=== PATIENT | male | born 1930 | race Caucasian/White ===

== ENCOUNTER 2017-06-28 19:40 | Emergency (ER) | payer MEDICARE, OTHER ==
[~2017-06-28] VITALS: Ht 180.3 cm; Wt 63.5 kg
[~2017-06-28 19:40] MED LIST: ATOR20TA PO; HYDR-3326 PO; MAGN400O6 PO; MULT1TAB73 PO; TAMS-3 PO
--- NOTE | 2017-06-28 19:47 | NUR ---
Pt biba from home for mech fall resulting in lac to right eyebrow, abrasion to right shoulder, abrasion to right elbow and abrasion to knuckles of right hand. Pt alert and oriented x 4. Pt denies LOC, denies dizziness. Pt resting in position of comfort for self. Awaiting further eval.
[2017-06-28] MEDS ORDERED: CEPHALEXIN MONOHYDRATE 500 MG CAPSULE PO ONE (20:15)
[2017-06-28] MEDS ORDERED: LIDOCAINE 2%-EPI 1:100,000 20 ML VIAL TP ONE (20:15)
[2017-06-28] MEDS ORDERED: NEOMY/BACITRA/POLYMYXIN B OINT UD PACKET TP ONE ×3 (20:15→22:43)
[2017-06-28] MEDS ORDERED: LIDOCAINE 2%-EPI 1:100,000 20 ML VIAL ONE (22:00)
[2017-06-28] MEDS ORDERED: TDAP DIPH,PERTUSS,TET VAC/PF 0.5 ML DISP.SYRIN IM ONE ×3 (22:00→22:53)
[2017-06-28] MEDS ORDERED: CEPHALEXIN MONOHYDRATE 500 MG CAPSULE ONE ×2 (22:00→22:53)
--- NOTE | 2017-06-28 22:23 | NUR ---
Pt to and from radiology. Dr. Cobian at bedside for laceration repair.
--- NOTE | 2017-06-28 22:37 | NUR ---
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 Eta 15- 20 mins
--- NOTE | 2017-06-28 23:02 | NUR ---
Pt stable for discharge per Dr. Cobian. Abrasions to elbow and knuckles of right hand cleansed and simple drsg applied.
--- NOTE | 2017-06-28 23:07 | NUR ---
Patient discharged to home in stable conditon WITH EX TAKING PATIENT HOME. Written and verbal after care instructions given. Patient/EX verbalizes understanding of instructions.
[2017-06-28 23:08] VITALS: BP 128/75
== END 2017-06-28 23:09 | disposition home or self-care (01) ==
LOC: ER 19:41
DX: S51.011A Laceration without foreign body of right elbow, initial encounter (principal); S01.81XA Laceration without foreign body of other part of head, initial encounter; W01.0XXA Fall on same level from slipping, tripping and stumbling without subsequent striking against object, initial encounter; Y93.89 Activity, other specified; Y92.9 Unspecified place or not applicable; Y99.9 Unspecified external cause status
CPT/HCPCS: 70450; 70486; 72125; 73060; 73090; 90715; A4217; A4663; J3490

== ENCOUNTER 2017-08-05 21:02 | Inpatient (IN) | payer MEDICARE, OTHER ==
[~2017-08-05] VITALS: Ht 180.3 cm; Wt 49.9 kg
--- NOTE | 2017-08-05 21:15 | NUR ---
Pt biba from home. Pt's ex- called 911 concerned for pt. Pt refusing his medications, not acting himself. Per EMS pt's blood pressure was in the 80's on scene. Pt alert and oriented to name and , unable to recall the year or his location. Pt is very cachectic. Pt c/o right wrist pain s/p fall two days ago. No obvious deformity noted, however the wrist is warm to touch. Pt resting in position of comfort for self. Resp even and unlabored. Pt arrived with IV inserted and fluid bolus infusing. Pt awaiting further eval.
[2017-08-05] MEDS ORDERED: IV NORMAL SALINE 500 ML IV ONE (21:42)
--- NOTE | 2017-08-05 22:00 | NUR ---
PT STATES UNABLE TO REMEMBER MEDS.ACCORDING TO PARAMEDICS EX- STATED PT DOES NOT TAKE ANY MEDS.PT LIVES ALONE
[2017-08-05 22:24] LABS: BASOPHILS # (AUTO) 0.3 K/uL (0.0-8.0); BASOPHILS % (AUTO) 2.6 % (0.0-2.0); EOSINOPHILS % (AUTO) 0.1 % (0.0-7.0); HEMATOCRIT 41.8 % (40-50); HEMOGLOBIN 13.4 G/DL (14.0-18.0); LYMPHOCYTES # (AUTO) 0.5 K/UL (0.8-4.8); MEAN CORPUSCULAR HEMOGLOBIN 29.7 UUG (27.0-31.0); MEAN CORPUSCULAR HGB CONC 32 g/dL (32.0-37.0); MEAN CORPUSCULAR VOLUME 92.3 FL (82.0-92.0); MONOCYTES # (AUTO) 1.4 K/UL (0.1-1.30); MONOCYTES % (AUTO) 10.3 % (0.0-11.0); NEUTROPHILS # (AUTO) 11.1 K/UL (1.8-8.9); PLATELET COUNT (AUTO) 277 K/UL (150-450); RED BLOOD CELL COUNT(AUTO) 4.52 MIL/UL (4.7-6.1); WHITE BLOOD COUNT (AUTO) 13.3 K/UL (4.0-11.2)
[2017-08-05] MEDS ORDERED: HYDROMORPHONE 1 MG/1 ML DISP.SYRIN IV ONE (22:30)
--- NOTE | 2017-08-05 22:30 | NUR ---
Fluid bolus completed. Pt medicated for pain, will monitor for effects of medication. Wrist repositioned for comfort.
[2017-08-05 22:37] LABS: ALANINE AMINOTRANSFERASE 12 U/L (16-63); ALKALINE PHOSPHATASE 55 U/L (50-136); ASPARTATE AMINOTRANSFERASE 14 U/L (15-37); BILIRUBIN,DIRECT 0.3 mg/dL (0.0-0.2); BILIRUBIN,TOTAL 1.1 mg/dL (0.2-1.0); CARBON DIOXIDE 26 mmol/L (21-32); CHLORIDE 104 mmol/L (98-107); GLUCOSE 118 mg/dL (74-106); POTASSIUM 4.1 mmol/L (3.5-5.1); TOTAL PROTEIN, SERUM 6.5 g/dL (6.4-8.2); UREA NITROGEN, BLOOD 28 mg/dL (7-18)
[2017-08-05] MEDS ORDERED: HYDROMORPHONE 2 MG/1 ML DISP.SYRIN ONE (22:38)
[2017-08-05 22:56] LABS: LIPASE 121 U/L (73-393)
[2017-08-05] MEDS ORDERED: CEFAZOLIN 1 G in IV DEXTROSE 5% 50 ML IV ONE (23:00)
--- NOTE | 2017-08-05 23:15 | NUR ---
Pt to CT via josr
--- NOTE | 2017-08-05 23:30 | NUR ---
Pt returned from CT via gurney. Resting in position of comfort for self. Pt no complaints at this time. Sts his wrist feels much better.
--- NOTE | 2017-08-05 23:45 | NUR ---
ABT infusion started, will monitor for any adverse reactions.
[2017-08-05] MEDS ORDERED: CEFAZOLIN 1 G VIAL ONE (23:53)
--- NOTE | 2017-08-06 00:21 | NUR ---
ABT infusion completed, no adverse reactions noted. Report called to SEAN Sánchez. Preparing to transfer pt to the floor.
[2017-08-06 00:45] VITALS: BP 137/71
[2017-08-06] MEDS ORDERED: HYDROCODONE/APAP 5-325MG TABLET PO PRN ×2 (00:45)
[2017-08-06] MEDS ORDERED: ACETAMINOPHEN 325 MG TABLET PO PRN (00:45)
[2017-08-06] MEDS ORDERED: Z GUARD REMEDY PASTE 57 GM TUBE TOP PRN (00:45)
[2017-08-06] MEDS ORDERED: ONDANSETRON 4 MG/2 ML VIAL IV PRN (00:45)
[2017-08-06] MEDS ORDERED: MAGNESIUM HYDROXIDE 30 ML LIQUID UDC PO PRN ×2 (00:45)
[2017-08-06] MEDS ORDERED: ZOLPIDEM 5 MG TABLET PO PRN (00:45)
--- NOTE | 2017-08-06 00:45 | NUR ---
Admitted a 87y/o male pt via [facility] with a diagnosis of delirium. Pt is alert and awake with episodes of confusion. No acute distress noted. Breathing even and unlabored with normal respirations. Skin assessment done, pictures taken and was placed on chart. However, Pt unable to provide medical history due to current condition. IV on Left AC intact and patent. Med recon done. DVT pumps on. Vital signs stable. Kept clean, dry and comfortable. Call light within reach. All needs attended. Will continue to monitor.
[2017-08-06] MEDS ORDERED: ALBUTEROL SULFATE 1.25 MG/3 ML NEBU NEB PRN (01:00)
[2017-08-06] MEDS: IV D5 1/2 NS 1000 ML 1,000 ML IV PRN ×2 (02:20→18:02)
[2017-08-06 04:00] VITALS: BP 103/53
--- NOTE | 2017-08-06 06:52 | NUR ---
pt slept comfortably throughout the shift. No acute distress noted. No complaints of pain. Pt pulled his IV out on his Left AC, started a new line on RFA, intact and patent. kept clean, dry and comfortable. All needs attended. Will continue to monitor.
[2017-08-06 07:02] LABS: AMYLASE 41 U/L (25-115); LIPASE 94 U/L (73-393)
[2017-08-06] MEDS: MULTIVITAMINS,THERAPEUTIC TABLET PO SCH (08:05)
[2017-08-06] MEDS: PANTOPRAZOLE SODIUM 40 MG TABLET.DR PO SCH (08:05)
[2017-08-06] MEDS ORDERED: Medication Not On Formulary EA (Multivitamins (Multivitamin) 1 EACH) PO SCH (09:00)
--- NOTE | 2017-08-06 09:40 | NUR ---
PATIENT NOTED TO HAVE PULLED OUT HIS HEPLOCK AT THIS TIME UNABLE TO RECALL WHAT HAPPENED WILL REINSERT SOON POSSIBLE.
--- NOTE | 2017-08-06 10:30 | NUR ---
HEPLOCK REINSERTED TO HIS RIGHT UPPER ARM WITH GAUGE 20 ANGIO AND IVF RESTARTED IN PROGRESS ORDERED.
[2017-08-06 11:19] VITALS: BP 93/52
[2017-08-06 12:48] LABS: *BLOOD, URINE NEGATIVE (NEGATIVE); *COLOR,URINE DARK YELLOW (YELLOW); *KETONES,URINE 1+ (NEGATIVE); *PROTEIN,URINE TRACE (NEGATIVE); LEUKOCYTE ESTERASE ,URINE TRACE (NEGATIVE); NITRITE, URINE NEGATIVE (NEGATIVE); UGLUCOSE TRACE (NEGATIVE)
[2017-08-06 13:07] LABS: *BILIRUBIN,URIN NEGATIVE (NEGATIVE)
[2017-08-06 13:08] LABS: *CLARITY,URINE SLIGHTLY HAZY (CLEAR)
[2017-08-06 13:09] LABS: BACTERIA,URINE NONE SEEN /HPF (NONE SEEN); RBC,URINE NONE SEEN /HPF (0-3); SQUAMOUS EPITHELIAL CELL,UR FEW /HPF (NONE SEEN); URIC ACID CRYSTALS,URINE MODERATE /HPF (NONE SEEN); WBC,URINE 0-3 /HPF (0-3)
[2017-08-06] MEDS: NEOMY/BACITRAC/POLYMI OINT 28.35 GM TUBE TOP SCH ×2 (13:51→21:44)
[2017-08-06 14:04] LABS: IRON, SERUM 22 ug/dL (50-175)
--- NOTE | 2017-08-06 14:18 | NUR ---
DR NEREYDA GARCÍA AWARE OF THE MULTIPLE SKIN TEARS AND SCABS WITH NEW ORDERS AND NOTED
[2017-08-06 15:57] VITALS: BP 93/63
--- NOTE | 2017-08-06 18:19 | NUR ---
APPETITE IS BETTER FOR DINNER BUT REFUSED THE BOOST STATED THAT HE IS TOO FULL AT THE MOMENT WILL SAVE IT FOR HIM TO DRINK LATER TONITE.
--- NOTE | 2017-08-06 19:30 | NUR ---
RECEIVED PATIENT FROM PREVIOUS SHIFT. PATIENT IS STABLE, NO SIGNS OF DISTRESS. PATIENT IS CONFUSED, APPEARS TO BE SLIGHTLY ANXIOUS. REORIENTATION PROVIDED TO PATIENT BUT CONTINUES TO BE CONFUSED. IV ACCESS NOTED, PATENT, AND INTACT. CALL LIGHT IN REACH OF PATIENT. SAFETY AND COMFORT PROVIDED.
[2017-08-06 20:01] VITALS: BP 104/66
[2017-08-06] MEDS: TAMSULOSIN HCL 0.4 MG CAP.SR.24H PO SCH (20:24)
[2017-08-06] MEDS: ATORVASTATIN 20 MG TABLET PO SCH (20:24)
[2017-08-06] MEDS: Z GUARD REMEDY PASTE 57 GM TUBE TOP SCH (21:38)
[2017-08-07 05:56] VITALS: BP 105/63
[2017-08-07 06:50] LABS: BASOPHILS % (AUTO) 0.5 % (0.0-2.0); EOSINOPHILS # (AUTO) 0.1 K/uL (0.0-0.7); EOSINOPHILS % (AUTO) 2.2 % (0.0-7.0); HEMATOCRIT 36.7 % (40-50); HEMOGLOBIN 12.3 G/DL (14.0-18.0); LYMPHOCYTES # (AUTO) 1.2 K/UL (0.8-4.8); LYMPHOCYTES % (AUTO) 18.2 % (20.5-51.5); MEAN CORPUSCULAR HEMOGLOBIN 30.7 UUG (27.0-31.0); MEAN CORPUSCULAR HGB CONC 34 g/dL (32.0-37.0); MEAN CORPUSCULAR VOLUME 91.6 FL (82.0-92.0); MONOCYTES # (AUTO) 1.1 K/UL (0.1-1.30); MONOCYTES % (AUTO) 16.3 % (0.0-11.0); NEUTROPHILS % (AUTO) 62.8 % (38.5-71.5); PLATELET COUNT (AUTO) 226 K/UL (150-450); RED BLOOD CELL COUNT(AUTO) 4.01 MIL/UL (4.7-6.1); WHITE BLOOD COUNT (AUTO) 6.4 K/UL (4.0-11.2)
[2017-08-07] MEDS: PANTOPRAZOLE SODIUM 40 MG TABLET.DR PO SCH (07:04)
[2017-08-07 07:18] LABS: ALANINE AMINOTRANSFERASE 13 U/L (16-63); ALKALINE PHOSPHATASE 43 U/L (50-136); ASPARTATE AMINOTRANSFERASE 14 U/L (15-37); BILIRUBIN,TOTAL 0.7 mg/dL (0.2-1.0); CARBON DIOXIDE 28 mmol/L (21-32); CHLORIDE 109 mmol/L (98-107); CHOLESTEROL 156 mg/dL (<200); CREATININE 0.9 mg/dL (0.6-1.3); GLUCOSE 102 mg/dL (74-106); HDL CHOLESTEROL 57 mg/dL (40-60); MAGNESIUM 2.1 mg/dL (1.8-2.4); PHOSPHOROUS 2.9 mg/dL (2.5-4.9); POTASSIUM 3.5 mmol/L (3.5-5.1); TOTAL PROTEIN, SERUM 5.9 g/dL (6.4-8.2); TRIGLYCERIDES 61 MG/DL (30-150); UREA NITROGEN, BLOOD 14 mg/dL (7-18)
[2017-08-07] MEDS: IV D5 1/2 NS 1000 ML 1,000 ML IV PRN ×2 (07:41→20:21)
[2017-08-07 07:59] LABS: IRON, SERUM 37 ug/dL (50-175)
[2017-08-07] MEDS: Z GUARD REMEDY PASTE 57 GM TUBE TOP SCH ×2 (08:09→20:20)
[2017-08-07] MEDS: NEOMY/BACITRAC/POLYMI OINT 28.35 GM TUBE TOP SCH ×2 (08:09→20:20)
[2017-08-07] MEDS: MULTIVITAMINS,THERAPEUTIC TABLET PO SCH (08:09)
[2017-08-07 08:27] LABS: THYROID STIMULATING HORMONE 3.075 mIU/mL (0.358-3.740)
--- NOTE | 2017-08-07 09:34 | NUR ---
AWAKE ALERT AND VERBALLY RESPONDS WITH CONFUSSION ALL NEEDS ANTICIPATED AND SATISFIED.REMAIN ON IVF ORDERED MADE COMFORTABLE AND WILL OBSERVE.
--- NOTE | 2017-08-07 11:00 | NUR ---
PATIENT SEEN BY THE PHYSICAL THERAPY AND HE WALKED WITH THE FRONT WHEEL WALKER WITH [employer] AND BACK TO BED.
[2017-08-07 11:58] VITALS: BP 96/66
--- NOTE | 2017-08-07 13:46 | NUR ---
SLT HERE AND SEEN PATIENT AND STATED THAT SHE WILL CHANGE PATIENTS DIET.
[2017-08-07 15:47] VITALS: BP 99/63
--- NOTE | 2017-08-07 18:00 | NUR ---
PATIENT IS RESTING AWAKE ALERT TO SELF REMAIN ON IVF ORDERED ALL NEEDS ANTICIPATED AND SATISFIED NOT IN DISTRESS AT THIS TIME.
[2017-08-07 20:00] VITALS: BP 112/67
[2017-08-07] MEDS: ATORVASTATIN 20 MG TABLET PO SCH (20:14)
[2017-08-07] MEDS: TAMSULOSIN HCL 0.4 MG CAP.SR.24H PO SCH (20:14)
[2017-08-07] MEDS: VITAMIN E CREAM 56.7 GM JAR TP SCH (20:20)
--- NOTE | 2017-08-07 23:13 | NUR ---
RECEIVED PATIENT AWAKE AND COMFORTABLE IN BED. ALERT AND ORIENTED TO SELF, PLACE AND TIME. ON IVF INFUSION ORDERED. NOTED SKIN TEAR IN DIFFERENT AREAS LEFT AND RIGHT ELBOWS DRESSING INTACT. SUTURE IN RIGHT INDEX FINGER CLEAN AND DRY. VITAL SIGNS ARE STABLE. INCONTINENT OF URINE. REDNESS ON PERINEAL AREA BARRIER CREAM APPLIED. OTHERWISE PATIENT IS SLEEPING AT THIS TIME. CALL BUCKNER WITHIN REACH.
[2017-08-08] MEDS: PANTOPRAZOLE SODIUM 40 MG TABLET.DR PO SCH (06:04)
--- NOTE | 2017-08-08 06:04 | NUR ---
PATIENT SLEPT GOOD THROUGH THE NIGHT. NO COMPLAINT OF PAIN, NO RESPIRATORY DISTRESS. VITAL SIGNS ARE STABLE. KEPT SAFE AND MONITORED. CALL LIGHT WITHIN REACH.
[2017-08-08 06:40] VITALS: BP 110/63
[2017-08-08] MEDS: MULTIVITAMINS,THERAPEUTIC TABLET PO SCH (08:08)
[2017-08-08] MEDS: VITAMIN E CREAM 56.7 GM JAR TP SCH ×2 (08:09→20:31)
[2017-08-08] MEDS: NEOMY/BACITRAC/POLYMI OINT 28.35 GM TUBE TOP SCH ×2 (08:09→20:32)
[2017-08-08] MEDS: Z GUARD REMEDY PASTE 57 GM TUBE TOP SCH ×2 (08:09→20:31)
--- NOTE | 2017-08-08 08:30 | NUR ---
AWAKE ALERT TO SELF ASSISTED WITH BFAST WITH FAIR [employer]ITE LIKES HIS BOOST REMAIN ON IVF ORDERED WITH NO INFILTERATION ON SITE.ON FIRST STEP ANGEL TURNED AND REPOSITIONED FOR COMFORT.MADE COMFORTABLE NOT IN DISTRESS AT THIS TIME.
[2017-08-08] MEDS: IV D5 1/2 NS 1000 ML 1,000 ML IV PRN ×2 (09:02→23:38)
[2017-08-08] MEDS: LEVOFLOXACIN 500 MG/D5W 500 MG in PREMIXED 1 EACH IV SCH (10:55)
[2017-08-08 11:25] VITALS: BP 99/50
--- NOTE | 2017-08-08 13:43 | NUR ---
REMAIN ON IV ANTIBIOTICS ORDERED WITH NO ADVERSE OR ALLERGIC REACTIONS AT THIS TIME.NO EPISODES OF COUGH OR SHORTNESS OF BREATH ALL NEEDS ANTICIPATED AND SATISFIED.
[2017-08-08 15:43] VITALS: BP_SYST 88; BP_SYST 90; BP_DIAS 48; BP_DIAS 53
[2017-08-08 16:40] LABS: *OCCULT BLOOD STOOL NEGATIVE (NEGATIVE)
--- NOTE | 2017-08-08 18:00 | NUR ---
RESTING STATED THAT HE IS TIRED DENIES DISCOMFORTS MADE COMFORTABLE PATIENT HAD A BOWEL MOVEMENT TODAY.
[2017-08-08 20:00] VITALS: BP 97/52
--- NOTE | 2017-08-08 20:00 | NUR ---
Pt received in bed AOx2 but forgetful at times. IVF running in right forearm, intact and patent. Pt is on air mattress, noted generalized bruises all over body and sutures to right middle finger with dressing. No acute distress noted. Bed in low and locked position. Will continue to monitor for safety.
[2017-08-08] MEDS: TAMSULOSIN HCL 0.4 MG CAP.SR.24H PO SCH (20:31)
[2017-08-08] MEDS: ATORVASTATIN 20 MG TABLET PO SCH (20:31)
--- NOTE | 2017-08-09 03:13 | NUR ---
pt sleeping in bed at this time, easily arousable. Receiving IVF in right arm, tolerating well. No acute distress noted.
[2017-08-09 05:05] VITALS: BP 100/61
--- NOTE | 2017-08-09 06:03 | NUR ---
Pt slept well through out the night. Receiving IVF, tolerating well. pt able to turn self in bed. No acute distress noted.
[2017-08-09] MEDS: PANTOPRAZOLE SODIUM 40 MG TABLET.DR PO SCH (06:16)
[2017-08-09 06:49] LABS: BASOPHILS % (AUTO) 0.6 % (0.0-2.0); EOSINOPHILS # (AUTO) 0.2 K/uL (0.0-0.7); EOSINOPHILS % (AUTO) 2.6 % (0.0-7.0); HEMATOCRIT 35.6 % (40-50); HEMOGLOBIN 11.7 G/DL (14.0-18.0); LYMPHOCYTES # (AUTO) 0.9 K/UL (0.8-4.8); LYMPHOCYTES % (AUTO) 15.1 % (20.5-51.5); MEAN CORPUSCULAR HGB CONC 33 g/dL (32.0-37.0); MEAN CORPUSCULAR VOLUME 91.5 FL (82.0-92.0); MONOCYTES # (AUTO) 0.8 K/UL (0.1-1.30); MONOCYTES % (AUTO) 13.2 % (0.0-11.0); NEUTROPHILS # (AUTO) 4.2 K/UL (1.8-8.9); NEUTROPHILS % (AUTO) 68.5 % (38.5-71.5); PLATELET COUNT (AUTO) 259 K/UL (150-450); RED BLOOD CELL COUNT(AUTO) 3.89 MIL/UL (4.7-6.1); WHITE BLOOD COUNT (AUTO) 6.1 K/UL (4.0-11.2)
[2017-08-09 06:57] LABS: CARBON DIOXIDE 32 mmol/L (21-32); CHLORIDE 107 mmol/L (98-107); CREATININE 0.8 mg/dL (0.6-1.3); GLUCOSE 88 mg/dL (74-106); PHOSPHOROUS 2.2 mg/dL (2.5-4.9); POTASSIUM 4.3 mmol/L (3.5-5.1); UREA NITROGEN, BLOOD 11 mg/dL (7-18)
[2017-08-09] MEDS: NEOMY/BACITRAC/POLYMI OINT 28.35 GM TUBE TOP SCH ×2 (08:02→20:55)
[2017-08-09] MEDS: MULTIVITAMINS,THERAPEUTIC TABLET PO SCH (08:02)
[2017-08-09] MEDS: Z GUARD REMEDY PASTE 57 GM TUBE TOP SCH ×2 (08:02→20:54)
[2017-08-09] MEDS: VITAMIN E CREAM 56.7 GM JAR TP SCH ×2 (08:03→20:55)
[2017-08-09] MEDS: LEVOFLOXACIN 500 MG/D5W 500 MG in PREMIXED 1 EACH IV SCH (10:10)
[2017-08-09 11:34] VITALS: BP 99/60
[2017-08-09] MEDS: IV D5 1/2 NS 1000 ML 1,000 ML IV PRN (14:12)
[2017-08-09] MEDS ORDERED: NEUTRA PHOS PACKET PO ONE (15:45)
[2017-08-09 16:00] VITALS: BP 104/61
[2017-08-09 20:00] VITALS: BP 117/62
--- NOTE | 2017-08-09 20:00 | NUR ---
Pt received in bed, no acute distress noted. AOx3, confused at times. Receiving IVF, intact and tolerating well. Pt on air mattress, skin care provided. vital signs wnl. Will continue to monitor for safety.
[2017-08-09] MEDS: ATORVASTATIN 20 MG TABLET PO SCH (20:54)
[2017-08-09] MEDS: TAMSULOSIN HCL 0.4 MG CAP.SR.24H PO SCH (20:54)
[2017-08-10] MEDS: IV D5 1/2 NS 1000 ML 1,000 ML IV PRN (05:00)
[2017-08-10 05:13] VITALS: BP 113/54
[2017-08-10] MEDS: PANTOPRAZOLE SODIUM 40 MG TABLET.DR PO SCH (06:41)
--- NOTE | 2017-08-10 06:58 | NUR ---
PT SLEPT WELL THROUGH OUT THE NIGHT. TOLERATING WELL. NO ACUTE DISTRESS NOTED.
[2017-08-10] MEDS: MULTIVITAMINS,THERAPEUTIC TABLET PO SCH (08:02)
[2017-08-10] MEDS: Z GUARD REMEDY PASTE 57 GM TUBE TOP SCH (08:02)
[2017-08-10] MEDS: VITAMIN E CREAM 56.7 GM JAR TP SCH (08:02)
[2017-08-10] MEDS: NEOMY/BACITRAC/POLYMI OINT 28.35 GM TUBE TOP SCH (08:02)
[2017-08-10 08:56] LABS: ALANINE AMINOTRANSFERASE 20 U/L (16-63); ALKALINE PHOSPHATASE 51 U/L (50-136); ASPARTATE AMINOTRANSFERASE 18 U/L (15-37); BILIRUBIN,TOTAL 0.5 mg/dL (0.2-1.0); CARBON DIOXIDE 32 mmol/L (21-32); CHLORIDE 105 mmol/L (98-107); CREATININE 0.9 mg/dL (0.6-1.3); GLUCOSE 89 mg/dL (74-106); PHOSPHOROUS 2.5 mg/dL (2.5-4.9); TOTAL PROTEIN, SERUM 5.6 g/dL (6.4-8.2); UREA NITROGEN, BLOOD 13 mg/dL (7-18)
[2017-08-10 09:14] LABS: BASOPHILS # (AUTO) 0.1 K/uL (0.0-8.0); EOSINOPHILS # (AUTO) 0.2 K/uL (0.0-0.7)
[2017-08-10 09:24] LABS: BASOPHILS % (AUTO) 0.8 % (0.0-2.0); EOSINOPHILS % (AUTO) 2.6 % (0.0-7.0); HEMOGLOBIN 11.9 g/dL (12.5-16.3); LYMPHOCYTES # (AUTO) 1.3 K/uL (20.0-40.0); LYMPHOCYTES % (AUTO) 18.4 % (20.5-51.5); MEAN CORPUSCULAR HEMOGLOBIN 31.6 uug (23.8-33.4); MEAN CORPUSCULAR HGB CONC 35 g/dL (32.5-36.3); MEAN CORPUSCULAR VOLUME 90.1 fL (73.0-96.2); MONOCYTES % (AUTO) 13.7 % (0.0-11.0); NEUTROPHILS # (AUTO) 4.5 K/uL (1.8-8.9); NEUTROPHILS % (AUTO) 64.5 % (38.5-71.5); RED BLOOD CELL COUNT(AUTO) 3.77 MIL/uL (4.06-5.63)
[2017-08-10 09:30] LABS: PLATELET COUNT (AUTO) 268 K/uL (152-348)
[2017-08-10] MEDS ORDERED: LEVOFLOXACIN 500 MG TABLET PO SCH (10:15)
[2017-08-10 11:50] VITALS: BP 93/54
--- NOTE | 2017-08-10 14:37 | NUR ---
Patient has been accepted at [facility]. Address: [address], [place] [address] AT [phone]
[2017-08-10] MEDS ORDERED: ALBU1.25 NEB (15:34)
[2017-08-10] MEDS ORDERED: NEOM28.3 TOP (15:34)
[2017-08-10] MEDS ORDERED: ZOLP5TAB8 PO (15:34)
[2017-08-10] MEDS ORDERED: MENT71OI TOP (15:34)
[2017-08-10] MEDS ORDERED: MULT-24 PO (15:34)
[2017-08-10] MEDS ORDERED: VITAMIN E TP (15:34)
[2017-08-10] MEDS ORDERED: ATOR10TA PO (15:34)
[2017-08-10] MEDS ORDERED: LEVO500T2 PO (15:34)
[2017-08-10] MEDS ORDERED: MAGN400O6 PO (15:34)
[2017-08-10 16:00] VITALS: BP 92/54
--- NOTE | 2017-08-10 16:25 | NUR ---
d/c orders received noted and carried out,d/c heplock per md orders.d/c orders and rn report given to the care home .pt left the facility via ambulances in stable condition.
== END 2017-08-10 16:50 | DRG 853 ==
LOC: ER 21:04 → TELE 08-06 00:17 → MED 08-06 14:49
PROVIDERS: ADMIT Internal Medicine; ATTEND Internal Medicine
PROC: 0XQQXZZ Repair Right Middle Finger, External Approach (ICD-10-PCS; principal; 2017-08-05)
DX: A41.9 Sepsis, unspecified organism (principal); J69.0 Pneumonitis due to inhalation of food and vomit; E43 Unspecified severe protein-calorie malnutrition; G92 Toxic encephalopathy; C61 Malignant neoplasm of prostate; R53.2 Functional quadriplegia; D68.59 Other primary thrombophilia; I50.32 Chronic diastolic (congestive) heart failure; J44.9 Chronic obstructive pulmonary disease, unspecified; D63.8 Anemia in other chronic diseases classified elsewhere; Z68.1 Body mass index [BMI] 19.9 or less, adult; J98.11 Atelectasis; S61.212A Laceration without foreign body of right middle finger without damage to nail, initial encounter; W19.XXXA Unspecified fall, initial encounter; S51.011A Laceration without foreign body of right elbow, initial encounter; E78.5 Hyperlipidemia, unspecified; Y92.89 Other specified places as the place of occurrence of the external cause; S01.111D Laceration without foreign body of right eyelid and periocular area, subsequent encounter; X58.XXXD Exposure to other specified factors, subsequent encounter; N40.0 Benign prostatic hyperplasia without lower urinary tract symptoms; Z91.81 History of falling; M81.0 Age-related osteoporosis without current pathological fracture; M11.231 Other chondrocalcinosis, right wrist; R62.7 Adult failure to thrive; G31.84 Mild cognitive impairment of uncertain or unknown etiology; Z98.890 Other specified postprocedural states; M19.041 Primary osteoarthritis, right hand; M19.031 Primary osteoarthritis, right wrist; G31.9 Degenerative disease of nervous system, unspecified; I45.81 Long QT syndrome; Z79.899 Other long term (current) drug therapy
CPT/HCPCS: 36415; 70030-TC; 70450; 71010; 73110; 73130; 82746; 83550; 83605; 83690; 83735; 84100; 84153; 84443; 85025; 85651; 85730; 87040; 87086; 92610; 93005; 93307; 97110; 97116; 97530; A4217; A4663; J0690; J1170; J1956; J3490; J7030; J7060

== ENCOUNTER 2017-08-21 12:10 | Inpatient (IN) | payer MEDICARE, OTHER ==
[~2017-08-21] VITALS: Ht 180.3 cm; Wt 47.6 kg
[~2017-08-21 12:10] MED LIST changes: +ALBU1.25 NEB; +ATOR10TA PO; -ATOR20TA PO; +LEVO500T2 PO; +MENT71OI TOP; +MULT-24 PO; +NEOM28.3 TOP; +VITAMIN E TP; +ZOLP5TAB8 PO
--- NOTE | 2017-08-21 12:25 | NUR ---
Pt took ground level fall, c/o left hip and lower back pain, distal PMS intact. Pt denies CP, SOB, dizziness, n/v, no other complaints, no distress noted.
[2017-08-21 16:05] LABS: BASOPHILS % (AUTO) 0.4 % (0.0-2.0); EOSINOPHILS # (AUTO) 0.1 K/uL (0.0-0.7); EOSINOPHILS % (AUTO) 0.9 % (0.0-7.0); HEMATOCRIT 38.8 % (40-50); HEMOGLOBIN 12.5 G/DL (14.0-18.0); LYMPHOCYTES # (AUTO) 0.8 K/UL (0.8-4.8); LYMPHOCYTES % (AUTO) 8.7 % (20.5-51.5); MEAN CORPUSCULAR HEMOGLOBIN 29.8 UUG (27.0-31.0); MEAN CORPUSCULAR HGB CONC 32 g/dL (32.0-37.0); MEAN CORPUSCULAR VOLUME 92.3 FL (82.0-92.0); MONOCYTES # (AUTO) 0.8 K/UL (0.1-1.30); MONOCYTES % (AUTO) 9.3 % (0.0-11.0); NEUTROPHILS # (AUTO) 7.4 K/UL (1.8-8.9); NEUTROPHILS % (AUTO) 80.7 % (38.5-71.5); PLATELET COUNT (AUTO) 274 K/UL (150-450); RED BLOOD CELL COUNT(AUTO) 4.21 MIL/UL (4.7-6.1); WHITE BLOOD COUNT (AUTO) 9.1 K/UL (4.0-11.2)
[2017-08-21 16:29] LABS: ALANINE AMINOTRANSFERASE 17 U/L (16-63); ALKALINE PHOSPHATASE 51 U/L (50-136); ASPARTATE AMINOTRANSFERASE 15 U/L (15-37); BILIRUBIN,DIRECT 0.2 mg/dL (0.0-0.2); BILIRUBIN,TOTAL 0.7 mg/dL (0.2-1.0); CARBON DIOXIDE 27 mmol/L (21-32); CHLORIDE 104 mmol/L (98-107); CREATININE 0.9 mg/dL (0.6-1.3); GLUCOSE 138 mg/dL (74-106); POTASSIUM 4.5 mmol/L (3.5-5.1); TOTAL PROTEIN, SERUM 5.9 g/dL (6.4-8.2); UREA NITROGEN, BLOOD 22 mg/dL (7-18)
--- NOTE | 2017-08-21 19:45 | NUR ---
RECEIVED PATIENT VIA GURNEY FROM ER. REPORTED THAT PATIENT IS A S/P FALL BUT ABLE TO AMBULATE WITH ASSISTANCE WITHOUT ANY C/O PAIN OR DISCOMFORT. PATIENT IS ALERT TO SELF. CONFUSED AND DISORIENTED BUT VERY PLEASANT WHEN APPROACHED AND COOPERATIVE WITH CARE. PLACED ON TELE ORDERED, SR. VSS. PATIENT DENIES ANY PAIN OR DISCOMFORT AT THIS TIME. NO RESP. DISTRESS NOTED. H/L INTACT AND PATENT. PATIENT MADE COMFORTABLE IN BED AND REPOSITIONED TO SIDE FOR PRESSURE RELIEF AND COMFORT. REDNESS NOTED TO SACRAL AREA AND BUTTOCKS. BED ALARM ON. CALL LIGHT IN REACH. ALL NEEDS ATTENDED, WILL CONTINUE TO MONITOR AND ASSESS.
[2017-08-21 20:44] VITALS: BP 93/52
[2017-08-21] MEDS ORDERED: Z GUARD REMEDY PASTE 57 GM TUBE TOP PRN (21:15)
[2017-08-21] MEDS ORDERED: ONDANSETRON 4 MG/2 ML VIAL IV PRN (22:00)
[2017-08-21] MEDS ORDERED: ACETAMINOPHEN 325 MG TABLET PO PRN (22:00)
[2017-08-22 00:14] VITALS: BP 92/48
[2017-08-22] MEDS ORDERED: IV NS 1000 ML 1,000 ML IV PRN (00:30)
[2017-08-22] MEDS ORDERED: ZOLPIDEM 5 MG TABLET PO PRN (00:30)
[2017-08-22] MEDS ORDERED: MAGNESIUM HYDROXIDE 30 ML LIQUID UDC PO PRN (00:30)
[2017-08-22] MEDS ORDERED: HYDROCODONE/APAP 5-325MG TABLET PO PRN (00:30)
[2017-08-22] MEDS ORDERED: Z GUARD REMEDY PASTE 57 GM TUBE TOP PRN (00:30)
[2017-08-22] MEDS ORDERED: ALBUTEROL SULFATE 1.25 MG/3 ML NEBU NEB PRN (00:30)
[2017-08-22 04:00] VITALS: BP 98/57
[2017-08-22 06:50] LABS: BASOPHILS # (AUTO) 0.1 K/uL (0.0-8.0); BASOPHILS % (AUTO) 1.1 % (0.0-2.0); EOSINOPHILS # (AUTO) 0.2 K/uL (0.0-0.7); MONOCYTES # (AUTO) 0.8 K/uL (2.0-10.0); MONOCYTES % (AUTO) 13.2 % (0.0-11.0)
--- NOTE | 2017-08-22 06:50 | NUR ---
PATIENT ASLEEP IN BED. ON TELE SR. IVF INFUSING WELL TO RIGHT FA. BED ALARM ON. SLEPT WELL THROUGHOUT THE NIGHT. BED ALARM ON. CALL LIGHT IN REACH. ALL NEEDS ATTENDED. WILL CONTINUE TO MONITOR.
[2017-08-22] MEDS ORDERED: PANTOPRAZOLE SODIUM 40 MG TABLET.DR PO SCH (07:00)
[2017-08-22 07:09] LABS: EOSINOPHILS % (AUTO) 3.5 % (0.0-7.0); HEMATOCRIT 36.1 % (36.7-47.1); HEMOGLOBIN 12.3 g/dL (12.5-16.3); LYMPHOCYTES # (AUTO) 1.1 K/uL (20.0-40.0); MEAN CORPUSCULAR HEMOGLOBIN 31.1 uug (23.8-33.4); MEAN CORPUSCULAR HGB CONC 34 g/dL (32.5-36.3); MEAN CORPUSCULAR VOLUME 91.2 fL (73.0-96.2); NEUTROPHILS # (AUTO) 4.1 K/uL (1.8-8.9); NEUTROPHILS % (AUTO) 65.2 % (38.5-71.5); PLATELET COUNT (AUTO) 251 K/uL (152-348); RED BLOOD CELL COUNT(AUTO) 3.96 MIL/uL (4.06-5.63); WHITE BLOOD COUNT (AUTO) 6.2 K/uL (3.6-10.2)
[2017-08-22 07:16] LABS: CARBON DIOXIDE 27 mmol/L (21-32); CHLORIDE 106 mmol/L (98-107); CREATININE 0.8 mg/dL (0.6-1.3); GLUCOSE 84 mg/dL (74-106); MAGNESIUM 2.1 mg/dL (1.8-2.4); PHOSPHOROUS 4.1 mg/dL (2.5-4.9); POTASSIUM 4.1 mmol/L (3.5-5.1); UREA NITROGEN, BLOOD 19 mg/dL (7-18)
--- NOTE | 2017-08-22 08:30 | NUR ---
AWAKE FORGETFUL BUT FOLLOW INSTRUCTION ON FALL /ASPIRATION PRECAUTION BED ALARM ON AND CALL BUCKNER IN REACH
[2017-08-22] MEDS ORDERED: Medication Not On Formulary EA (Multivitamins (Multivitamin) 1 EACH) PO SCH (09:00)
[2017-08-22] MEDS ORDERED: Z GUARD REMEDY PASTE 57 GM TUBE TOP SCH (09:00)
[2017-08-22] MEDS ORDERED: NEOMY/BACITRAC/POLYMI OINT 28.35 GM TUBE TOP SCH (09:00)
[2017-08-22] MEDS ORDERED: MULTIVITAMINS,THERAPEUTIC TABLET PO SCH (09:00)
--- NOTE | 2017-08-22 11:00 | NUR ---
DR KENDALL POP SEEN PATIENT AND LAB RESULT NEW ORDER IN CHART PT EVAL ON GT LUCY OK GEN WEAK UNABLE TO AMB WELL
[2017-08-22] MEDS ORDERED: AMIN30LI25 PO (11:22)
[2017-08-22 11:56] VITALS: BP 92/51
--- NOTE | 2017-08-22 15:00 | NUR ---
D/C TO [facility] TODAY INFORM TO PATIENT AND FAMILY VERBALIZES UNDERSTAND AND REPORT TO NURSE AT SNF [facility] VIA TEL
[2017-08-22 15:59] VITALS: BP 93/53
--- NOTE | 2017-08-22 19:04 | NUR ---
DISCHARGE TO [facility]IA [facility]BULANCE TODAY CONDITION STABLE
[2017-08-22] MEDS ORDERED: ATORVASTATIN 10 MG TABLET PO SCH (21:00)
[2017-08-22] MEDS ORDERED: TAMSULOSIN HCL 0.4 MG CAP.SR.24H PO SCH (21:00)
== END 2017-08-22 19:00 | DRG 542 ==
LOC: ER 12:13 → TELE 19:25 → MED 08-22 15:55
PROVIDERS: ADMIT Internal Medicine; ATTEND Internal Medicine
DX: M80.08XA Age-related osteoporosis with current pathological fracture, vertebra(e), initial encounter for fracture (principal); E43 Unspecified severe protein-calorie malnutrition; G93.40 Encephalopathy, unspecified; R53.2 Functional quadriplegia; D63.8 Anemia in other chronic diseases classified elsewhere; D68.59 Other primary thrombophilia; I50.32 Chronic diastolic (congestive) heart failure; J44.9 Chronic obstructive pulmonary disease, unspecified; Z68.1 Body mass index [BMI] 19.9 or less, adult; J98.11 Atelectasis; W18.30XA Fall on same level, unspecified, initial encounter; E78.5 Hyperlipidemia, unspecified; G31.84 Mild cognitive impairment of uncertain or unknown etiology; G89.29 Other chronic pain; E53.8 Deficiency of other specified B group vitamins; Z87.01 Personal history of pneumonia (recurrent); Z91.81 History of falling; Y93.9 Activity, unspecified; Y92.129 Unspecified place in nursing home as the place of occurrence of the external cause; N40.0 Benign prostatic hyperplasia without lower urinary tract symptoms; M62.50 Muscle wasting and atrophy, not elsewhere classified, unspecified site; M51.36 Other intervertebral disc degeneration, lumbar region; M47.896 Other spondylosis, lumbar region; I77.810 Thoracic aortic ectasia; M48.02 Spinal stenosis, cervical region; Z79.899 Other long term (current) drug therapy
CPT/HCPCS: 36415; 70030-TC; 70450; 71010; 72100; 72125; 73502; 83735; 84100; 85025; 85730; 93005; A4663; J7030